=== PATIENT | female | born 1975 | race Hispanic/Latino ===

== ENCOUNTER 2017-09-10 07:03 | Emergency (ER) | payer OTHER ==
[2017-09-10] MEDS ORDERED: HYDROCODONE/ACETAMINOPHEN 10/325 MG TAB ONE (07:46)
[2017-09-10] MEDS ORDERED: ONDANSETRON ODT 4 MG TAB ONE (07:46)
== END 2017-09-10 09:07 | disposition home or self-care (01) ==
LOC: EDH 07:03
DX: S86.811A Strain of other muscle(s) and tendon(s) at lower leg level, right leg, initial encounter (principal); I10 Essential (primary) hypertension; E11.9 Type 2 diabetes mellitus without complications; E66.9 Obesity, unspecified; Z68.42 Body mass index [BMI] 45.0-49.9, adult; Z87.891 Personal history of nicotine dependence; X58.XXXA Exposure to other specified factors, initial encounter; Y93.89 Activity, other specified; Y92.098 Other place in other non-institutional residence as the place of occurrence of the external cause; Y99.8 Other external cause status
CPT/HCPCS: 93971

== ENCOUNTER 2018-10-31 16:38 | Emergency (ER) | payer OTHER | END 2018-10-31 17:05 | disposition home or self-care (01) | LOC: EDH 16:38 | DX: S96.891A Other specified injury of other specified muscles and tendons at ankle and foot level, right foot, initial encounter (principal); E11.9 Type 2 diabetes mellitus without complications; X58.XXXA Exposure to other specified factors, initial encounter; Y93.89 Activity, other specified; Y92.89 Other specified places as the place of occurrence of the external cause; Y99.8 Other external cause status | CPT/HCPCS: 99281 ==